=== PATIENT | male | born 1995 | race Caucasian/White ===

== ENCOUNTER 2021-12-25 05:42 | Emergency (ER) | payer OTHER ==
[~2021-12-25] VITALS: Ht 182.9 cm; Wt 86.4 kg
[2021-12-25 05:43] VITALS: BP 163/86
[2021-12-25] MEDS ORDERED: LIDOCAINE 5% TRANSDERMAL PATCH TD ONE (06:15)
[2021-12-25] MEDS ORDERED: ACETAMINOPHEN 325 MG TABLET PO ONE (06:15)
[2021-12-25] MEDS ORDERED: NAPROXEN 250 MG TABLET PO ONE (06:15)
[2021-12-25] MEDS ORDERED: NAPR-1024 PO (06:37)
== END 2021-12-25 06:44 | disposition home or self-care (01) ==
LOC: EMS 05:47
DX: M54.41 Lumbago with sciatica, right side (principal); Z86.69 Personal history of other diseases of the nervous system and sense organs
CPT/HCPCS: 99282; Z7502; Z7610